=== PATIENT | female | born 1950 | race African-American/Black ===

== ENCOUNTER 2024-05-14 11:39 | Outpatient (AMB) | payer OTHER, SELFPAY ==
--- NOTE | 2024-05-14 11:54 | HO.NEPHOV_ITS ---
Vital Signs 05/14/24 12:02 Height 5 ft 4 in Weight 151 lb 4 oz BMI 26.0 BP 124/60 Blood Pressure Location Rt brachial Position Sitting Pulse 95 Pulse Source Pulse Oximeter Pulse Oximetry (%) 99 Oxygen Delivery Method Room Air Intake Visit Reasons: Continuing care- CKD/ LVM Reading Efficiency Course Director Required: No Accompanied by: Other Relationship Allergies aspirin Allergy (Unknown, Verified 05/14/24 12:05) Unknown codeine Allergy (Unknown, Verified 05/14/24 12:05) Unknown diltiazem Allergy (Unknown, Verified 05/14/24 12:05) Unknown enalapril Allergy (Unknown, Verified 05/14/24 12:05) Unknown escitalopram [From Lexapro] Allergy (Unknown, Verified 05/14/24 12:05) Unknown hydrochlorothiazide Allergy (Unknown, Verified 05/14/24 12:05) Unknown lisinopril Allergy (Unknown, Verified 05/14/24 12:05) Unknown paroxetine Allergy (Unknown, Verified 05/14/24 12:05) Unknown rosuvastatin Allergy (Unknown, Verified 05/14/24 12:05) Unknown torsemide [From Demadex] Allergy (Unknown, Verified 05/14/24 12:05) Unknown sulfa antibiotics Allergy (Unknown, Uncoded 05/14/24 09:38) Unknown HPI Comments Details: I had the pleasure of seeing Nargis in follow-up of her mild CKD , complex renal cyst and hypertension. Her renal function had been stable. Her blood pressure is currently well controlled on current medication regimen. She is tolerating angiotensin receptor gabriel. His serum potassium has been normal. She denies any chest pain, shortness of breath, paroxysmal nocturnal dyspnea, orthopnea, pedal edema, hematuria or orthostatic symptoms. She maintains good hydration and avoids nonsteroidal anti-inflammatories. Her blood sugar control is good. She has no flank pain or hematuria. She did not have any new active complaints at the time of this office visit. [facility] Medical History (Updated 05/14/24 @ 12:22 by Spenser Cortes MD) Amputated toe Complex renal cyst Hypertension Family History (Updated 05/14/24 @ 12:07 by Jamila Amezquita MA) Mother Diabetes Sister Diabetes Social History Alcohol intake: never Patient Tobacco Use Status: Never used Tobacco Review of Systems Const All systems reviewed & are unremarkable except as noted in HPI and below Physical Exam Vital Signs: Last Vital Signs Pulse 95 05/14/24 12:02 BP 124/60 05/14/24 12:02 Pulse Ox 99 05/14/24 12:02 Oxygen Delivery Method Room Air 05/14/24 12:02 BMI result Body Mass Index 26.0 Const General: comfortable and no acute distress Orientation/consciousness: patient oriented x3 HEENT Head: Yes normocephalic Mouth: Normal oral and palatal mucosa present Eyes EOM: EOMs intact bilaterally Neck Neck: Yes supple Resp Auscultation: clear to auscultation bilaterally Cardio Jugular venous distension: no JVD Rate: regular rate GI Palpation (GI): Soft to palpation Auscultation: normal bowel sounds General: Yes no CVA tenderness Back/Spine/Pelvis Back: no CVA tenderness Skin General skin exam: no rashes or lesions noted Neuro General: patient oriented x3 and moves all extremities Extrem General: Yes no pedal edema Results Reviewed Nephrology Results: No Data to Display Assessment & Plan Assessment & Plan (1) Hypertension: Code(s): I10 - Essential (primary) hypertension Category: Medical Qualifiers: Hypertension type: primary hypertension Qualified Code(s): I10 - Essential (primary) hypertension (2) Complex renal cyst: Code(s): N28.1 - Cyst of kidney, acquired Category: Medical (3) CKD (chronic kidney disease) stage 2, GFR 60-89 ml/min: Code(s): N18.2 - Chronic kidney disease, stage 2 (mild) Category: Medical Plan Nargis has had mild CKD for a long time. Her renal function has been stable. His serum potassium is normal. She has a diabetic. She is tolerating her irbesartan. Her volume status is optimal. Her blood sugar control is better. She does not have any orthostatic symptoms. She maintains good hydration and avoid nonsteroidal anti-inflammatories. I plan to do follow up renal imaging after I see her next time. I did not make any medication changes today. All questions answered. Follow-up appointment given. Orders: Orders Electrolytes Today I10 - Essential (primary) hypertension, N18.2 - Chronic kidney disease, stage 2 (mild), N28.1 - Cyst of kidney, acquired Creatinine Today I10 - Essential (primary) hypertension, N18.2 - Chronic kidney disease, stage 2 (mild), N28.1 - Cyst of kidney, acquired Blood Urea Nitrogen Today I10 - Essential (primary) hypertension, N18.2 - Chronic kidney disease, stage 2 (mild), N28.1 - Cyst of kidney, acquired Coding Level of Care Code Est Pt Level 4 (87722) Diagnoses Primary hypertension I10 Hypertension type: primary hypertension Complex renal cyst N28.1 CKD (chronic kidney disease) stage 2, GFR 60-89 ml/min N18.2
[2024-05-14 12:02] VITALS: BP 124/60; PULSE 95; O2SAT 99; BMI 26.0
== END 2024-05-14 12:24 | disposition home or self-care (01) ==
PROVIDERS: PCP Internal Medicine; Visit Provider Internal Medicine Nephrology
DX: I12.9 Hypertensive chronic kidney disease with stage 1 through stage 4 chronic kidney disease, or unspecified chronic kidney disease (principal); N28.1 Cyst of kidney, acquired; N18.2 Chronic kidney disease, stage 2 (mild)
CPT/HCPCS: 99214

== ENCOUNTER → 2024-05-14 11:39 | Outpatient (BNVA) | payer OTHER, SELFPAY | PROVIDERS: PCP Internal Medicine; Visit Provider Internal Medicine Nephrology ==

== ENCOUNTER 2024-05-14 12:29 | Outpatient (REF) | payer OTHER, SELFPAY ==
[2024-05-14 13:58] LABS: Anion Gap 12 (12-20); Blood Urea Nitrogen 14 mg/dL (9-16); Carbon Dioxide 27 mmol/L (22-29); Chloride 108 mmol/L (96-108); Estimated Glomerular Filt Rate 58; Potassium 3.9 mmol/L (3.3-5.1); Sodium 143 mmol/L (135-145)
== END 2024-05-14 12:30 | disposition home or self-care (01) ==
LOC: HO.10HDL 12:29
PROVIDERS: Visit Provider Internal Medicine Nephrology
DX: I12.9 Hypertensive chronic kidney disease with stage 1 through stage 4 chronic kidney disease, or unspecified chronic kidney disease (principal); N28.1 Cyst of kidney, acquired; N18.2 Chronic kidney disease, stage 2 (mild)
CPT/HCPCS: 36415; 80051; 82565; 84520